=== PATIENT | male | born 1940 | race Caucasian/White ===

== ENCOUNTER → 2016-08-11 | Outpatient (CLI) | payer MEDICARE, BC ==
[2014-12-06 19:37] VITALS: BP 151/68
[~2016-08-11] MED LIST: BUDE10.2 IH; IOHEXOL 300 MG/ML 100ML VIAL. IV ONE; METH2.5T PO
--- NOTE | 2016-08-11 15:00 | KCIC ---
CT abdomen PQRS STATEMENT: One or more of the following in the visualized dose reduction techniques were utilized for this study: 1. Automatic exposure control, 2. Adjustment of the mA and/or kV according to patient size, 3. Use of iterative reconstruction technique COMPARISON: MRI abdomen September 04, 2015 TECHNIQUE: Multiple today's axial images were obtained through the abdomen before IV contrast administration. Then postcontrast images were obtained during the arterial and portal venous phases after intravenous administration of iodinated contrast. Coronal and sagittal reformations were created on the venous phase. FINDINGS: There is been no significant change in size of the exophytic right renal cyst arising from the interpolar region. This measures 4.3 x 4.0 cm compared with 4.3 x 4.0 cm on the MRI abdomen from September 04, 2015. This cyst demonstrates a mildly thickened and partially calcified wall along its inferior margin. A more simple appearing cyst is seen arising from the inferior pole of the left kidney which is also unchanged in size and demonstrates no septations, calcification, or wall thickening. There is no hydronephrosis of either kidney. The left kidney demonstrates a nonobstructive 1.5 cm calculus. Lung bases are clear. Heart size is normal. Coronary artery calcified calcifications are noted. The liver is normal in size with no focal lesions identified. Gallbladder is nondistended. The pancreas, spleen, and adrenal glands are unremarkable. The visualized loops of bowel are normal in caliber. No destructive osseous lesions are identified. There is no adenopathy. IMPRESSION: No significant change in size of the complicated right renal cyst that measures up to 4.0 cm in size. This is Bosniak category 2F, and continued follow-up is recommended. Electronically signed by: Srinivasa Veronica MD (08/11/2016 2:56 PM)
== END | disposition home or self-care (01) ==
LOC: KCIC CT 13:44
PROVIDERS: ATTEND Urology
DX: N28.1 Cyst of kidney, acquired (principal)
CPT/HCPCS: 74170; 82565; Q9967

== ENCOUNTER → 2016-12-22 | Outpatient (CLI) | payer MEDICARE, BC ==
[2014-12-06 19:37] VITALS: BP 151/68
[~2016-12-22] MED LIST changes: -IOHEXOL 300 MG/ML 100ML VIAL. IV ONE
--- NOTE | 2016-12-22 08:47 | KCIC ---
INDICATION: Groin pain with history of hernia repair COMPARISON: August 21, 2015 CT FINDINGS: Focused ultrasound images were obtained through the right groin. Within the right groin there is a region of shadowing which obscures the adjacent structures. There are no definite loops of bowel seen extending into the right inguinal region. The adjacent common femoral artery and vein have vascular flow. IMPRESSION: Within the right groin there is a region of shadowing which obscures the adjacent structures. If the patient had a history of surgery to this region then this could be secondary to causes such as hernia mesh. Within the limits of this exam there is no definite adjacent fluid collection or loop of bowel extending into the region. Electronically signed by: Jerald Thompson MD (12/22/2016 8:44 AM) [id number]
== END | disposition home or self-care (01) ==
LOC: KCIC US 07:59
PROVIDERS: ATTEND Physician Assistant Medical
DX: R10.30 Lower abdominal pain, unspecified (principal)
CPT/HCPCS: 76881

== ENCOUNTER → 2017-03-02 | Outpatient (CLI) | payer MEDICARE, BC | END | disposition home or self-care (01) | LOC: KCIC US 10:37 | DX: N28.1 Cyst of kidney, acquired (principal); N20.0 Calculus of kidney; N40.0 Benign prostatic hyperplasia without lower urinary tract symptoms | CPT/HCPCS: 76770 ==